=== PATIENT | female | born 1945 | race Caucasian/White ===

== ENCOUNTER → 2017-08-05 | Outpatient (CLI) | payer OTHER ==
[~2017-08-05] VITALS: Ht 154.9 cm; Wt 80.7 kg
[~2017-08-05] MED LIST: ASPIR 8181 M1 PO; CALCIUM + VITA1 EAC1 PO; CARVEDILOL12.5 MG PO; FISH OIL + D31 EACH PO; FISH OIL 1,001000 M1 PO; GABAPENTIN 100100 MG PO; HYDROCHLOROTHIA25 M2 PO; KLOR-CON 1010 MEQ PO; LASIX 20 MG TAB20 MG PO; LIPITOR10 MG PO; MOBIC15 MG PO; NORCO 5-325 TA1 EACH PO; OMEPRAZOLE40 MG PO; TRAMADOL 50 MG50 MG PO; TRIGLIDE160 M1 PO; UNICOMPLEX M TA1 TA1 PO
--- NOTE | ~2017-08-05 | P ---
[facility] [place] [address] PROCEDURE REPORT Name: PURNIMA HAMILTON Room #: REG [facility].#: [id number] Admission: 08/05/17 Attend Phys: Francisco Uribe Discharge: Date of : 47 Report #: [id number] THIS REPORT FOR: //name// CC: Francisco Miranda MD DATE OF SERVICE: 08/05/2017 PROCEDURE PERFORMED: Colonoscopy. HISTORY OF PRESENT ILLNESS: The patient is a 72-year-old female who presents today for colonoscopy. She had a history of polyps in the past. She denies any symptoms. No family history of colon cancer. DESCRIPTION OF PROCEDURE: The risks and benefits of the procedure were explained to the patient, those risks including but not limited to bleeding, perforation, the risk of sedation. She understood these risks and gave informed consent. Sedation was given using propofol per Anesthesia. Next, a digital rectal exam was initially performed, which was normal. Next, using a standard Olympus colonoscope, the scope was placed in the patient's anus and advanced under direct vision to the cecum. The overall prep was excellent. The cecum and ileocecal valve were normal in appearance. Ascending, transverse and descending colon were normal. Multiple small diverticula were noted in the sigmoid colon, no evidence of inflammation, otherwise normal. The rectal mucosa was normal. On retroflexion, no abnormalities were noted. The scope was then withdrawn and the procedure terminated. The patient tolerated the procedure well. IMPRESSION: 1. Sigmoid diverticulosis. 2. Otherwise, normal colonoscopy. RECOMMENDATIONS: Repeat colonoscopy in 10 years. Thank you for allowing me to participate in her care. By: [id number] Francisco De Jesus MD /nt
== END | disposition home or self-care (01) ==
LOC: GI 08:39
DX: Z12.11 Encounter for screening for malignant neoplasm of colon (principal); K57.30 Diverticulosis of large intestine without perforation or abscess without bleeding; I10 Essential (primary) hypertension; E78.5 Hyperlipidemia, unspecified; K21.9 Gastro-esophageal reflux disease without esophagitis; G62.9 Polyneuropathy, unspecified; G47.33 Obstructive sleep apnea (adult) (pediatric); Z86.711 Personal history of pulmonary embolism; Z98.890 Other specified postprocedural states; Z79.899 Other long term (current) drug therapy; Z86.010 Personal history of colon polyps; Z98.41 Cataract extraction status, right eye; Z98.42 Cataract extraction status, left eye; Z96.652 Presence of left artificial knee joint; Z90.710 Acquired absence of both cervix and uterus; Z79.82 Long term (current) use of aspirin
CPT/HCPCS: 62110; 62900

== ENCOUNTER → 2018-04-05 | Outpatient (CLI) | payer OTHER | LOC: ULTRA 07:31 | DX: R10.11 Right upper quadrant pain (principal) ==

== ENCOUNTER → 2018-04-14 | Outpatient (CLI) | payer OTHER | LOC: NUC 09:09 | DX: R10.11 Right upper quadrant pain (principal) ==

== ENCOUNTER → 2018-10-22 | Outpatient (CLI) | payer OTHER | LOC: MRI 06:10 | DX: M47.816 Spondylosis without myelopathy or radiculopathy, lumbar region (principal); M51.35 Other intervertebral disc degeneration, thoracolumbar region; M51.25 Other intervertebral disc displacement, thoracolumbar region; M51.34 Other intervertebral disc degeneration, thoracic region; M51.36 Other intervertebral disc degeneration, lumbar region; M51.37 Other intervertebral disc degeneration, lumbosacral region; M51.26 Other intervertebral disc displacement, lumbar region; M47.815 Spondylosis without myelopathy or radiculopathy, thoracolumbar region; M48.062 Spinal stenosis, lumbar region with neurogenic claudication; M51.27 Other intervertebral disc displacement, lumbosacral region ==

== ENCOUNTER → 2019-10-06 | Outpatient (CLI) | payer OTHER | LOC: MRI 12:32 | PROVIDERS: ATTEND Nurse Practitioner | DX: I67.82 Cerebral ischemia (principal); R90.82 White matter disease, unspecified; G93.89 Other specified disorders of brain; I65.23 Occlusion and stenosis of bilateral carotid arteries ==

== ENCOUNTER → 2020-04-26 | Outpatient (CLI) | payer OTHER | LOC: ULTRA 08:55 | PROVIDERS: ATTEND Neuromusculoskeletal Medicine & OMM | DX: K76.0 Fatty (change of) liver, not elsewhere classified (principal) ==

== ENCOUNTER → 2020-05-08 | Outpatient (CLI) | payer OTHER ==
[~2020-05-08] MED LIST changes: +ASA81BEC PO; +CLARITIN10 M2 PO; +NORCO5 PO; +SENNA PLUS TAB1 EACH PO
== END ==
LOC: LAB 07:59
PROVIDERS: ATTEND Specialist
DX: Z01.812 Encounter for preprocedural laboratory examination (principal); Z20.822 Contact with and (suspected) exposure to COVID-19

== ENCOUNTER → 2020-05-11 | Outpatient (CLI) | payer OTHER ==
[~2020-05-11] VITALS: Ht 152.4 cm; Wt 80.7 kg
--- NOTE | 2020-05-14 12:50 | P ---
[facility] [place] [address] PROCEDURE REPORT Name: PURNIMA HAMILTON Room #: REG [facility] Rodriguez.#: [id number] Admission: 05/11/20 Attend Phys: Francisco Uribe Discharge: Date of : 47 Report #: [id number] THIS REPORT FOR: cc: Kristian Miranda,Francisco Hogan MD ~ DATE OF SERVICE: 05/11/2020 PROCEDURE PERFORMED: Upper endoscopy. HISTORY OF PRESENT ILLNESS: The patient is a 75-year-old female with a history of gastroesophageal reflux disease with continued symptoms of heartburn despite being on 40 mg of Prilosec. She therefore increased her dose to 80 mg recently last week, which has been very helpful. She denies any dysphagia, nausea or vomiting. She underwent an upper endoscopy by myself 1-year ago for right upper quadrant abdominal pain as well as heartburn. At that time esophagus was normal. A small hiatal hernia was noted. Biopsies were negative for H. pylori and celiac sprue at that time. Plan is for repeat upper endoscopy. DESCRIPTION OF PROCEDURE: The risks and benefits of the procedure were explained to the patient, those risks including but not limited to bleeding, perforation and the risk of sedation. She understood these risks and gave informed consent. Sedation was given using propofol per anesthesia. Next, using a standard Olympus upper endoscope, the scope was placed in the patient's mouth and advanced under direct vision through the esophagus, stomach and into the second portion of the duodenum. The larynx was normal in appearance. The esophagus was normal throughout. The GE junction was normal. No evidence of esophagitis. Upon entering the stomach, a small hiatal hernia was again noted. Overall, the gastric mucosa was normal. The pylorus was normal and patent. The duodenal bulb, first and second portion were all normal. Scope was then withdrawn and the procedure terminated. The patient tolerated the procedure well. IMPRESSION: 1. Small hiatal hernia. 2. Otherwise, normal upper endoscopy. RECOMMENDATIONS: Continue current dose of 80 mg per day of Prilosec for the next 1-2 months, then consider decreasing again to 40 mg and observing. If the patient has continued breakthrough symptoms, can always increase again at that time. [address] [address] PROCEDURE REPORT Name: PURNIMA HAMILTON Room #: REG PAUL Clark#: [id number] Admission: 05/11/20 Attend Phys: Francisco Uribe Discharge: Date of : 47 Report #: [id number] Thank you for allowing me to participate in her care. <ELECTRONICALLY SIGNED> By: Francisco De Jesus MD 05/14/20 [id number] Francisco De Jesus MD /nt
== END | disposition home or self-care (01) ==
LOC: GI 07:46
PROVIDERS: ATTEND Specialist
DX: K21.9 Gastro-esophageal reflux disease without esophagitis (principal); K44.9 Diaphragmatic hernia without obstruction or gangrene; I10 Essential (primary) hypertension; E78.5 Hyperlipidemia, unspecified; G47.30 Sleep apnea, unspecified; Z98.890 Other specified postprocedural states; Z79.899 Other long term (current) drug therapy; Z79.82 Long term (current) use of aspirin; Z96.642 Presence of left artificial hip joint; Z90.710 Acquired absence of both cervix and uterus; Z98.41 Cataract extraction status, right eye; Z98.42 Cataract extraction status, left eye
CPT/HCPCS: 62110; 62900

== ENCOUNTER → 2020-06-13 | Outpatient (CLI) | payer OTHER | LOC: CAT 09:59 | PROVIDERS: ATTEND Neuromusculoskeletal Medicine & OMM | DX: K57.30 Diverticulosis of large intestine without perforation or abscess without bleeding (principal); K57.33 Diverticulitis of large intestine without perforation or abscess with bleeding ==

== ENCOUNTER → 2021-01-29 | Outpatient (CLI) | payer OTHER ==
[2021-01-29 09:38] LABS: CREATININE 1.8 mg/dL (0.6-1.0)
== END ==
LOC: CAT 09:01
PROVIDERS: ATTEND Nurse Practitioner
DX: K57.30 Diverticulosis of large intestine without perforation or abscess without bleeding (principal); R63.4 Abnormal weight loss; R10.13 Epigastric pain; R19.7 Diarrhea, unspecified; R11.0 Nausea

== ENCOUNTER → 2021-02-15 | Outpatient (CLI) | payer OTHER | LOC: MRI 09:08 | PROVIDERS: ATTEND Nurse Practitioner | DX: I67.82 Cerebral ischemia (principal); G93.89 Other specified disorders of brain; R51.9 Headache, unspecified ==